=== PATIENT | female | born 1985 ===

== ENCOUNTER 2016-11-11 11:30 | Emergency (ER) | payer MEDICAID ==
[2016-11-11 11:33] VITALS: BMI 44.9
[2016-11-11 11:34] VITALS: O2SAT 99
--- NOTE | 2016-11-11 12:42 | ED PDOC ---
HPI: Psych/Substance Abuse Time Seen by Provider: 11/11/16 11:51 Chief Complaint (Nursing): Psychiatric Evaluation Chief Complaint (Provider): Crisis evaluation History Per: Patient History/Exam Limitations: no limitations Onset/Duration Of Symptoms: Days Additional Complaint(s): PT reports bilateral breast pain. Pt states it began today. Pt states she is concerned about breast cancer. Pt also states she has body pain all over. She did not take any medications for the pain. Mother states she is at baseline for her schizophrenia however she has been going outside alone the last few days. Pt is not taking any medications Past Medical History Reviewed: Historical Data, Nursing Documentation, Vital Signs Vital Signs: Last Vital Signs Temp 100.2 F H 11/11/16 11:33 Pulse 100 H 11/11/16 11:33 Resp 18 11/11/16 11:33 BP 137/90 11/11/16 11:33 Pulse Ox 99 11/11/16 11:33 - Medical History PMH: Schizophrenia - Surgical History Surgical History: No Surg Hx - Family History Family History: States: No Known Family Hx - Home Medications Home Medications: Ambulatory Orders Medication Instructions Recorded Acetaminophen [Tylenol Extra 1,000 mg PO Q6H PRN #20 tablet 11/11/16 Strength] - Allergies Allergies/Adverse Reactions: Allergies Allergy/AdvReac Type Severity Reaction Status Date / Time No Known Allergies Allergy Verified 11/11/16 11:53 Review of Systems ROS Statement: Except As Marked, All Systems Reviewed And Found Negative Genitourinary Female: Positive for: Other (Breast pain ) Physical Exam - Reviewed Nursing Documentation Reviewed: Yes Vital Signs Reviewed: Yes - Physical Exam Appears: Positive for: Well, Non-toxic, No Acute Distress Head Exam: Positive for: ATRAUMATIC, NORMAL INSPECTION, NORMOCEPHALIC Skin: Positive for: Normal Color, Warm, DRY Eye Exam: Positive for: Normal appearance ENT: Positive for: Normal ENT Inspection Neck: Positive for: Normal, Painless ROM Cardiovascular/Chest: Positive for: Regular Rate, Rhythm Respiratory: Positive for: CNT, Normal Breath Sounds Back: Positive for: Normal Inspection Extremity: Positive for: Normal ROM Neurologic/Psych: Positive for: Alert, Oriented - ECG O2 Sat by Pulse Oximetry: 99 Medical Decision Making Medical Decision Making: Temp 100.2 - Pt denies cough, abdominal pain, urinary symptoms. Disposition - Clinical Impression Clinical Impression: Viral illness - Patient ED Disposition Is Patient to be Admitted: No Counseled Patient/Family Regarding: Diagnosis, Need For Followup, Rx Given - Disposition Referrals: [facility] [Outside] Disposition: Routine/Home Disposition Time: 13:01 Condition: GOOD Prescriptions: Acetaminophen [Tylenol Extra Strength] 1,000 mg PO Q6H PRN #20 tablet PRN Reason: Pain or fever Instructions: Viral Syndrome (ED)
[2016-11-11 12:47] VITALS: BP 127/74; PULSE 94; RESP 22
[2016-11-11 13:04] VITALS: TEMP 98.2
== END 2016-11-11 14:49 | disposition home or self-care (01) ==
LOC: H.ER 11:30
DX: B34.9 Viral infection, unspecified (principal); F20.9 Schizophrenia, unspecified; N64.4 Mastodynia

== ENCOUNTER 2016-11-12 22:10 | Inpatient (IN) | payer MEDICAID ==
[2016-11-11 11:33] VITALS: BMI 44.9
[2016-11-12 22:17] VITALS: O2SAT 99
--- NOTE | 2016-11-12 22:28 | ED PDOC ---
Psych Transfer Clearance - Clearance Statement Clearance Statement: Reviewed vital signs, lab results and transfer papers. Patient clinically stable for psychiatric admission.
[2016-11-12] MEDS ORDERED: Alum-Mag Hydrox-Simethicone Susp (30 mL) PO PRN (22:50)
[2016-11-12] MEDS ORDERED: DiphenhydrAMINE 50 mg/ml Inj IM PRN (22:50)
[2016-11-12] MEDS ORDERED: Magnesium Hydroxide Susp 30 ml UD PO PRN (22:50)
--- NOTE | 2016-11-13 10:46 | CP.PCM.CON ---
History of Present Illness - History of Present Illness History of Present Illness: 11/13/16 06:45 Triglycerides 185 H Cholesterol 168 LDL Cholesterol Direct 111 HDL Cholesterol 36 Thyroxine (T4) 15.0 H TSH 3rd Generation 1.61 REASON FOR CONSULT: PER HOSPITAL PROTOCOL HPI: 40F no past medical history is currently admitted to psychiatry. Patient is currently unable to tell me why she was admitted to the hospital. Per report , patient had auditory hallucinations, however patient is unable to describe them. Otherwise no complaints. HD stable, NAD. ROS: per HPI, all other systems reviewed and negative PMSH: denies FH: DM SH: DENIES TOBACCO ETOH IVDU MEDS BELOW NKDA VITALS Temp Pulse Resp BP Pulse Ox 97.9 F 95 H 18 141/92 H 99 11/13/16 09:00 11/13/16 09:00 11/13/16 09:00 11/13/16 09:00 11/12/16 22:13 EXAM GENERAL APPEARANCE: Well developed, well nourished, alert and cooperative, and appears to be in no acute distress. HEAD: normocephalic. EYES: PERRL, EOMI. Fundi normal, vision is grossly intact. EARS: External auditory canals and tympanic membranes clear, hearing grossly intact. NOSE: No nasal discharge. THROAT: Oral cavity and pharynx normal. No inflammation, swelling, exudate, or lesions. CARDIAC: Normal S1 and S2. No S3, S4 or murmurs. Rhythm is regular. LUNGS: Clear to auscultation and percussion without rales, rhonchi, wheezing or diminished breath sounds. ABDOMEN: Positive bowel sounds. Soft, nondistended, nontender. No guarding or rebound. No masses. MUSKULOSKELETAL: Adequately aligned spine. ROM intact spine and extremities. No joint erythema or tenderness. BACK: Examination of the spine reveals normal gait and posture EXTREMITIES: No significant deformity or joint abnormality. No edema. Peripheral pulses intact. No varicosities. NEUROLOGICAL: CN II-XII intact. Strength and sensation symmetric and intact throughout. Reflexes 2+ throughout. SKIN: Skin normal color, texture and turgor with no lesions or eruptions. PSYCHIATRIC: The mental examination revealed the patient was oriented to person , place, and time. no lab results ASSESSMENT AND PLAN 40F no past medical history is currently admitted to psychiatry. Patient is currently unable to tell me why she was admitted to the hospital. Per report, patient had auditory hallucinations, however patient is unable to describe them. Otherwise no complaints. HD stable, NAD. Auditory Hallucinations management per psychiatry Past Patient History - Past Social History Smoking Status: Unknown If Ever Smoked - CARDIAC Hx Cardiac Disorders: No Hx Hypertension: No - PULMONARY Hx Tuberculosis: No - NEUROLOGICAL HX Cerebrovascular Accident: No Hx Seizures: No - HEMATOLOGICAL/ONCOLOGICAL Hx Cancer: No Hx Human Immunodeficiency Virus (HIV): No - GENITOURINARY/GYNECOLOGICAL Hx Sexually Transmitted Disorders: No - PSYCHIATRIC Hx Substance Use: No Meds Allergies/Adverse Reactions: Allergies Allergy/AdvReac Type Severity Reaction Status Date / Time No Known Allergies Allergy Verified 11/11/16 11:53 - Medications Medications: Current Medications Acetaminophen (Tylenol 325mg Tab) 650 mg PO Q4 PRN PRN Reason: Pain, moderate (4-7) Al Hydrox/Mg Hydrox/Simethicone (Maalox Plus 30 Ml) 30 ml PO Q4 PRN PRN Reason: Dyspepsia Diphenhydramine HCl (Benadryl) 50 mg IM Q6 PRN PRN Reason: Extrapyramidal S/S Unable PO Diphenhydramine HCl (Benadryl) 50 mg PO Q6 PRN PRN Reason: Extrapyramidal Symptoms Last Admin: 11/12/16 23:11 Dose: 50 mg Haloperidol (Haldol) 5 mg PO Q4 PRN PRN Reason: Agitation Last Admin: 11/12/16 23:11 Dose: 5 mg Haloperidol Lactate (Haldol) 5 mg IM Q4 PRN PRN Reason: Agitation, Unable to Take PO Lorazepam (Ativan) 2 mg IM Q4 PRN PRN Reason: Anxiety/Agitation,Unable PO Magnesium Hydroxide (Milk Of Magnesia) 30 ml PO HS PRN PRN Reason: Constipation Results - Vital Signs Recent Vital Signs: Last Vital Signs Temp 97.9 F 11/13/16 09:00 Pulse 95 H 11/13/16 09:00 Resp 18 11/13/16 09:00 BP 141/92 H 11/13/16 09:00 Pulse Ox 99 11/12/16 22:13 - Labs Labs: Laboratory Results - last 24 hr 11/13/16 06:45 Triglycerides 185 H Cholesterol 168 LDL Cholesterol Direct 111 HDL Cholesterol 36 Thyroxine (T4) 15.0 H TSH 3rd Generation 1.61
--- NOTE | 2016-11-13 12:44 | PCM.PSYCH ---
Initial Psychiatric Evaluation - Initial Psychiatric Evaluation Type of Admission: Voluntary Legal Status: Capacity Chief Complaint (in patient's own words): i wasn't feeling well Patient's Reaction to Hospitalization: ambivalent History of Present Illness and Precipitating Events: pt is 31 year old living with parents and her 11 yo daughter per her report. tranferred from [facility] er where she was brought by her family. she has a history of schizophrenia and has been hospitalized in the past. she apparently was taking medications and per chart, pt's father stated that dr. vo stopped the medications because the pt was stable. pt was brought to the ER because she was psychotic- dishevelled, not caring for adls, paranoid, talking to self, religiously preoccupied and per chart was spreading her own feces on the [place]. pt is currently pacing the halls and talking to herself and talking other clients on the unit about bizarre anabaptism delusions. pt is asking to be allowed to see her mother. attempted to discuss starting medications to treat her psychotic symptoms, but pt states "they are all poison! " and states she is will not take them. Current Medications: Active Medications Generic Name Dose Route Start Last Admin Trade Name Freq PRN Reason Stop Dose Admin Acetaminophen 650 mg 11/12/16 22:50 Tylenol 325mg Tab PO Q4 PRN Pain, moderate (4-7) Al Hydrox/Mg Hydrox/Simethicone 30 ml 11/12/16 22:50 Maalox Plus 30 Ml PO Q4 PRN Dyspepsia Diphenhydramine HCl 50 mg 11/12/16 22:50 Benadryl IM Q6 PRN Extrapyramidal S/S Unable PO Diphenhydramine HCl 50 mg 11/12/16 22:50 11/12/16 23:11 Benadryl PO 50 mg Q6 PRN Administration Extrapyramidal Symptoms Haloperidol 5 mg 11/12/16 22:50 11/12/16 23:11 Haldol PO 5 mg Q4 PRN Administration Agitation Haloperidol Lactate 5 mg 11/12/16 22:50 Haldol IM Q4 PRN Agitation, Unable to Take PO Lorazepam 2 mg 11/12/16 22:50 Ativan IM Q4 PRN Anxiety/Agitation,Unable PO Magnesium Hydroxide 30 ml 11/12/16 22:50 Milk Of Magnesia PO HS PRN Constipation Past Psychiatric History - Past Psychiatric History Previous Treatment History: Inpatient Prior Professional Help: states she saw dr. vo (states he has a "devils tail ") At [facility]: [facility]- per pt and staff. cannot locate records History of Abuse: unknown History of ETOH/Drug Use: states she used to smoke cigarettes. denies using illicit substances History of Family Illness: unknown Pertinent Medical Hx (Current Medical&Sleep Prob, Allergies): Allergies Allergy/AdvReac Type Severity Reaction Status Date / Time No Known Allergies Allergy Verified 11/11/16 11:53 Acetaminophen [Tylenol Extra Strength] 1,000 mg PO Q6H PRN #20 tablet 11/11/16 Review of Systems - Psychiatric Psychiatric: As Per HPI, Confusion Mental Status Examination - Personal Presentation Personal Presentation: Looks stated age, Obese Additional comments: unkempt - Affect Affect: Blunted - Motor Activity Motor Activity: Calm Additional comments: but is restless, pacing - Reliability in Providing Information Reliability in Providing Information: Good - Speech Speech: Disorganized - Mood Mood: Depressed, Anxious - Formal Thought Process Formal Thought Process: Hallucinations, Delusions, Paranoia, Loosening of associations - Hallucinations/Delusions Delusions: Other (anabaptism preoccupations) - Obsessions/Compulsions Obsessions: No Compulsions: No - Cognitive Functions Orientation: Person, Place, Situation, Time Sensorium: Alert Attention/Concentration: Easily distracted Abstract Thinking: [place] Estimate of Intelligence: Average Judgement: Intact, as evidence by: Insight regarding need for hospitalization Memory: Recent intact, as evidence by: Ability to recall events of the day, Remote intact, as evidenced by: Abilit to recall sig. life events - Risk Risk: Self-mutilation, Diminished functioning - Strength & Assets Inventory Strength & Assets Inventory: Family support DSM 5 DX - DSM 5 DSM 5 Diagnosis: schizophrenia, paranoid - Recommended/Plan of Treatment Treatment Recommendations and Plan of Treatment: admit to [facility] for safety and observation gather collateral information provide supportive therapy adjust medications- attempting to get pt's previous medications to restart. will use prn haldol/ativan for now. at this time pt is refusing to consider taking psychiatric medications disposition planing hospitalist consult Projected ELOS: 5-7 days Prognosis: fair - Smoking Cessation Smoking Cessation Initiated: No Reason for not providing: does not smoke
--- NOTE | 2016-11-14 15:28 | PCM.PYCHPN ---
Psychiatric Progress Note - Psychiatric Progress Note Patient seen today, length of contact: in treatment team Patient Chief Complaint: i took those diet pills and that was like poison Problems Identified/Issues Discussed: pt disorganized, pacing halls and muttering to self. she does admit to feeling depressed and having delusional thoughts and that she was doing better on medications. she cannot recall the names of her medications. she is now allowing team to start abilify to target her mood/psychotic symptoms. Medication Change: No Medical Record Reviewed: Yes Mental Status Examination - Cognitive Function Orientation: Person, Place, Situation, Time Memory: Intact Attention: Poor Concentration: Poor Association: Loose Fund of Knowledge: WNL Decription of patient's judgement and insights: improving - Mood Mood: Depressed, Anxious - Affect Affect: Blunted - Speech Speech: Pressured - Formal Thought Process Formal Thought Process: Hallucinations, Delusions, Paranoia, Loosening of associations - Suicidal Ideation Suicidal Ideation: No - Homicidal Ideation Homicidal Ideation: No Goal/Treatment Plan - Goal/Treatment Plan Need for Continued Stay: Remain at risks for inpatient hospitalization, Severe functional impairment Progress Toward Problem(s) and Goals/Treatment Plan: schizoaffectivec disorder needs further treatment and stabilization will start abilfy to target psychosis awaiting pharmacy contact info to help guide treatment hospitalist following disposition planing Estimated Date of D/C: 11/19/16
--- NOTE | 2016-11-15 10:16 | PCM.PYCHPN ---
Psychiatric Progress Note - Psychiatric Progress Note Patient seen today, length of contact: discussed with team Patient Chief Complaint: i need to sleep Problems Identified/Issues Discussed: pt starting at floor, pacing the halls at times. is attending groups but sits to self and is responding to inernal stimuli. she agrees to an increase in her abilify and to trazodone for sleep. Medication Change: No Medical Record Reviewed: Yes Mental Status Examination - Cognitive Function Orientation: Person, Place, Situation, Time Memory: Intact Attention: Poor Concentration: Poor Association: Loose Fund of Knowledge: WNL Decription of patient's judgement and insights: improving - Mood Mood: Depressed, Anxious - Affect Affect: Blunted - Speech Speech: Soft - Formal Thought Process Formal Thought Process: Hallucinations, Delusions, Paranoia, Loosening of associations Psychotic Thoughts and Behaviors: pt talking to self, poor adls, delusional thoughts - Suicidal Ideation Suicidal Ideation: No - Homicidal Ideation Homicidal Ideation: No Goal/Treatment Plan - Goal/Treatment Plan Need for Continued Stay: Remain at risks for inpatient hospitalization, Severe functional impairment Progress Toward Problem(s) and Goals/Treatment Plan: schizoaffectivec disorder needs further treatment and stabilization will increase abilfy to target psychosis trazodone hs for sleep family unware of pt's previous meds hospitalist following disposition planing Estimated Date of D/C: 11/19/16
--- NOTE | 2016-11-16 12:42 | PCM.PYCHPN ---
Psychiatric Progress Note - Psychiatric Progress Note Patient seen today, length of contact: discussed with team Patient Chief Complaint: i want to go home now Problems Identified/Issues Discussed: pt remains internally preoccupied. continues to pace. she is disruptive in groups. she is taking to self, unkempt and appears uninterested in ADLs. she demands to leave and signs a 48 hour notice. pt then asked for her things and tries to pack, despite being informed that she would be screened for involuntary hospitalization. her thoughts are disorganized. she remains with bizarre delusions and some advent preoccupation. Medication Change: Yes (increase abilify) Medical Record Reviewed: Yes Mental Status Examination - Cognitive Function Orientation: Person, Place, Situation, Time Memory: Intact Attention: Poor Concentration: Poor Association: Loose Fund of Knowledge: WNL Decription of patient's judgement and insights: improving - Mood Mood: Depressed, Anxious - Affect Affect: Blunted - Speech Speech: Soft - Formal Thought Process Formal Thought Process: Hallucinations, Delusions, Paranoia, Loosening of associations Psychotic Thoughts and Behaviors: pt talking to self, poor adls, delusional thoughts. - Suicidal Ideation Suicidal Ideation: No - Homicidal Ideation Homicidal Ideation: No Goal/Treatment Plan - Goal/Treatment Plan Need for Continued Stay: Remain at risks for inpatient hospitalization, Severe functional impairment Progress Toward Problem(s) and Goals/Treatment Plan: schizoaffectivec disorder needs further treatment and stabilization will increase abilfy to 15mg to target psychosis continue trazodone hs for sleep will screen for involuntary hospitalization as pt is grossly distrubed by her psychotic thoughts and a risk to self hospitalist following disposition planing Estimated Date of D/C: 11/19/16
--- NOTE | 2016-11-17 08:44 | PCM.PYCHPN ---
Psychiatric Progress Note - Psychiatric Progress Note Patient seen today, length of contact: discussed with team Patient Chief Complaint: pt is still internally preoccupied and stil hallucinating and saying that she still feels that someone is pinching her DSM 5 Symptoms Update: s chizoaffective disorder Medication Change: Yes (increase abilify) Medical Record Reviewed: Yes Mental Status Examination - Cognitive Function Orientation: Person, Place, Situation, Time Memory: Intact Attention: Poor Concentration: Poor Association: Loose Fund of Knowledge: WNL - Mood Mood: Depressed, Anxious - Affect Affect: Blunted - Speech Speech: Soft - Formal Thought Process Formal Thought Process: Hallucinations, Delusions, Paranoia, Loosening of associations - Suicidal Ideation Suicidal Ideation: No - Homicidal Ideation Homicidal Ideation: No Goal/Treatment Plan - Goal/Treatment Plan Need for Continued Stay: Remain at risks for inpatient hospitalization, Severe functional impairment Progress Toward Problem(s) and Goals/Treatment Plan: will increase abilify to 20 mg daily and stabilize the pt and engage pt in therapy Estimated Date of D/C: 11/19/16
--- NOTE | 2016-11-18 15:35 | PCM.PYCHPN ---
Psychiatric Progress Note - Psychiatric Progress Note Patient seen today, length of contact: discussed with team Patient Chief Complaint: pt is still internally preoccupied and stil hallucinating and saying that she still feels that someone is pinching her Problems Identified/Issues Discussed: admitted for disorganized thinking and psychotic agitation Medication Change: Yes (increase abilify) Medical Record Reviewed: Yes Mental Status Examination - Cognitive Function Orientation: Person, Place, Situation, Time Memory: Intact Attention: Poor Concentration: Poor Association: Loose Fund of Knowledge: WNL - Mood Mood: Depressed, Anxious - Affect Affect: Blunted - Speech Speech: Soft - Formal Thought Process Formal Thought Process: Hallucinations, Delusions, Paranoia, Loosening of associations - Suicidal Ideation Suicidal Ideation: No - Homicidal Ideation Homicidal Ideation: No Goal/Treatment Plan - Goal/Treatment Plan Need for Continued Stay: Remain at risks for inpatient hospitalization, Severe functional impairment Progress Toward Problem(s) and Goals/Treatment Plan: will increase abilify to 20 mg daily and stabilize the pt and engage pt in therapy Estimated Date of D/C: 11/19/16
--- NOTE | 2016-11-19 13:42 | PCM.PYCHPN ---
Psychiatric Progress Note - Psychiatric Progress Note Patient seen today, length of contact: discussed with team Patient Chief Complaint: i know i need to stay Problems Identified/Issues Discussed: pt still internally preoccupied. now is taking medications. retracted 48 hour notice. states medicine is helping, but she is still hearing voices. states she feels tired, but does not want timing of medicine changed. Medication Change: No ( ) Medical Record Reviewed: Yes Mental Status Examination - Cognitive Function Orientation: Person, Place, Situation, Time Memory: Intact Attention: Poor Concentration: Poor Association: Loose Fund of Knowledge: WNL Decription of patient's judgement and insights: improving - Mood Mood: Depressed, Anxious - Affect Affect: Blunted - Speech Speech: Soft - Formal Thought Process Formal Thought Process: Hallucinations, Paranoia, Loosening of associations - Suicidal Ideation Suicidal Ideation: No - Homicidal Ideation Homicidal Ideation: No Goal/Treatment Plan - Goal/Treatment Plan Need for Continued Stay: Remain at risks for inpatient hospitalization, Severe functional impairment Progress Toward Problem(s) and Goals/Treatment Plan: schizoaffectivec disorder needs further treatment and stabilization will continue abilfy 20mg continue trazodone hs for sleep hospitalist following disposition planing Estimated Date of D/C: 11/19/16
--- NOTE | 2016-11-20 13:55 | PCM.PYCHPN ---
Psychiatric Progress Note - Psychiatric Progress Note Patient seen today, length of contact: discussed with team Patient Chief Complaint: i am not sleeping well Problems Identified/Issues Discussed: pt remains internally preoccupied. c/o voices at night. she is paranoid. she is less anxious and no longer pacing on the unit. she is in the milieu and interacting with her peers. Medical Problems: obesity Medication Change: No ( ) Medical Record Reviewed: Yes Mental Status Examination - Cognitive Function Orientation: Person, Place, Situation, Time Memory: Intact Attention: Poor Concentration: Poor Association: Loose Fund of Knowledge: WNL Decription of patient's judgement and insights: improving - Mood Mood: Depressed, Anxious - Affect Affect: Blunted - Speech Speech: Soft - Formal Thought Process Formal Thought Process: Hallucinations, Paranoia, Loosening of associations Psychotic Thoughts and Behaviors: c/o ah and is internally preoccupied - Suicidal Ideation Suicidal Ideation: No - Homicidal Ideation Homicidal Ideation: No Goal/Treatment Plan - Goal/Treatment Plan Need for Continued Stay: Remain at risks for inpatient hospitalization, Severe functional impairment Progress Toward Problem(s) and Goals/Treatment Plan: schizoaffectivec disorder needs further treatment and stabilization will continue abilfy 20mg increase trazodone to 100mg hs for sleep hospitalist following disposition planing Estimated Date of D/C: 11/27/16
--- NOTE | 2016-11-21 14:16 | PCM.PYCHPN ---
Psychiatric Progress Note - Psychiatric Progress Note Patient seen today, length of contact: in treatment team Patient Chief Complaint: i feel much better Problems Identified/Issues Discussed: pt participating in groups. she is reporting she is no longer hearing voices. she is denying medication side effects. she states she still feels tearful but feels better after she cries. Medical Problems: obesity Medication Change: No ( ) Medical Record Reviewed: Yes Mental Status Examination - Cognitive Function Orientation: Person, Place, Situation, Time Memory: Intact Attention: Poor Concentration: Poor Association: Loose Fund of Knowledge: WNL Decription of patient's judgement and insights: improving - Mood Mood: Depressed, Anxious - Affect Affect: Blunted - Speech Speech: Soft - Formal Thought Process Formal Thought Process: Other (internally preoccupied) Psychotic Thoughts and Behaviors: no c/o ah - Suicidal Ideation Suicidal Ideation: No - Homicidal Ideation Homicidal Ideation: No Goal/Treatment Plan - Goal/Treatment Plan Need for Continued Stay: Remain at risks for inpatient hospitalization, Severe functional impairment Progress Toward Problem(s) and Goals/Treatment Plan: schizoaffectivec disorder needs further treatment and stabilization will continue abilfy 20mg continue trazodone 100mg hs for sleep hospitalist following disposition planing Estimated Date of D/C: 11/27/16
--- NOTE | 2016-11-22 10:56 | PCM.PYCHPN ---
Psychiatric Progress Note - Psychiatric Progress Note Patient seen today, length of contact: discussed with team Patient Chief Complaint: i want to go home soon Problems Identified/Issues Discussed: pt attending groups. she is more social with her peers. she denies any auditory hallucinations and continues to state she will get the maintaina injection. she has a brighter affect today with more spontaneous and organized speech. Medical Problems: obesity Medication Change: No ( ) Medical Record Reviewed: Yes Mental Status Examination - Cognitive Function Orientation: Person, Place, Situation, Time Memory: Intact Attention: WNL Concentration: WNL Association: WN Fund of Knowledge: [facility] Decription of patient's judgement and insights: fair - Mood Mood: Anxious - Affect Affect: Constricted (reactive smile) - Speech Speech: Soft - Formal Thought Process Formal Thought Process: Other (less internally preoccupied) Psychotic Thoughts and Behaviors: no c/o ah - Suicidal Ideation Suicidal Ideation: No - Homicidal Ideation Homicidal Ideation: No Goal/Treatment Plan - Goal/Treatment Plan Need for Continued Stay: Remain at risks for inpatient hospitalization, Severe functional impairment Progress Toward Problem(s) and Goals/Treatment Plan: schizoaffectivec disorder needs further treatment and stabilization will continue abilfy 20mg- will attempt to give maintaina 400mg tomorrow/sat and observe prior to discharge continue trazodone 100mg hs for sleep hospitalist following disposition planing Estimated Date of D/C: 11/27/16
--- NOTE | 2016-11-23 11:55 | PCM.PYCHPN ---
Psychiatric Progress Note - Psychiatric Progress Note Patient seen today, length of contact: discussed with team Patient Chief Complaint: i am okay Problems Identified/Issues Discussed: pt attending groups. socializing. seems a bit more withdrawn today. she denies any a/v hallucinations. fair sleep. Medical Problems: obesity Medication Change: Yes (attempt to give abilify maintaina today) Medical Record Reviewed: Yes Mental Status Examination - Cognitive Function Orientation: Person, Place, Situation, Time Memory: Intact Attention: WNL Concentration: WNL Association: WNL Fund of Knowledge: [facility] Decription of patient's judgement and insights: fair - Mood Mood: Anxious - Affect Affect: Constricted (reactive smile) - Speech Speech: Soft - Formal Thought Process Formal Thought Process: Other (less internally preoccupied) Psychotic Thoughts and Behaviors: no c/o ah - Suicidal Ideation Suicidal Ideation: No - Homicidal Ideation Homicidal Ideation: No Goal/Treatment Plan - Goal/Treatment Plan Need for Continued Stay: Remain at risks for inpatient hospitalization, Severe functional impairment Progress Toward Problem(s) and Goals/Treatment Plan: schizoaffectivec disorder needs further treatment and stabilization will continue abilfy 20mg- will attempt to give maintaina 400mg today/sat and observe prior to discharge continue trazodone 100mg hs for sleep hospitalist following disposition planing Estimated Date of D/C: 11/27/16
--- NOTE | 2016-11-24 10:35 | PCM.PYCHPN ---
Psychiatric Progress Note - Psychiatric Progress Note Patient seen today, length of contact: Patient evaluated, case discussed with team, chart reviewed Patient Chief Complaint: "I didn't sleep well last night." Problems Identified/Issues Discussed: Patient reports poor sleep last night. She was soft spoken with constricted affect. Non-linear at times during the conversation. She expressed paranoia that people on the unit may be trying to harm her, but she wasn't certain who. Denied AH/VH/SI/HI. Medication Change: No Medical Record Reviewed: Yes Mental Status Examination - Cognitive Function Orientation: Person, Place, Situation, Time Memory: Intact Attention: WNL Concentration: WNL Association: WNL Fund of Knowledge: WNL - Mood Mood: Anxious - Affect Affect: Constricted (reactive smile) - Speech Speech: Soft - Formal Thought Process Formal Thought Process: Paranoia, Other (less internally preoccupied) Psychotic Thoughts and Behaviors: +Paranoia - Suicidal Ideation Suicidal Ideation: No - Homicidal Ideation Homicidal Ideation: No Goal/Treatment Plan - Goal/Treatment Plan Need for Continued Stay: Remain at risks for inpatient hospitalization, Severe functional impairment Progress Toward Problem(s) and Goals/Treatment Plan: Schizoaffective Disorder; needs further treatment and stabilization -Continue current medications -Medicine consult appreciated -Individual and group therapy Estimated Date of D/C: 11/27/16
--- NOTE | 2016-11-25 13:18 | PCM.PYCHPN ---
Psychiatric Progress Note - Psychiatric Progress Note Patient seen today, length of contact: Patient evaluated, case discussed with team, chart reviewed Patient Chief Complaint: "I'm afraid" Problems Identified/Issues Discussed: Patient reports that she is very anxious and afraid that someone bad will happen to her, due to her paranoid ideations. Patient agreeable to taking PRN ativan. She reports that she feels depressed and she was tearful on interview. Denied AH/VH/SI/HI. Medication Change: No Medical Record Reviewed: Yes Mental Status Examination - Cognitive Function Orientation: Person, Place, Situation, Time Memory: Intact Attention: WNL Concentration: WNL Association: [facility] Fund of Knowledge: [facility] Decription of patient's judgement and insights: Poor I/J - Mood Mood: Anxious - Affect Affect: Constricted (reactive smile) - Speech Speech: Soft - Formal Thought Process Formal Thought Process: Paranoia Psychotic Thoughts and Behaviors: +Paranoia - Suicidal Ideation Suicidal Ideation: No - Homicidal Ideation Homicidal Ideation: No Goal/Treatment Plan - Goal/Treatment Plan Need for Continued Stay: Remain at risks for inpatient hospitalization, Severe functional impairment Progress Toward Problem(s) and Goals/Treatment Plan: Schizoaffective Disorder; needs further treatment and stabilization -Continue current medications -Medicine consult appreciated -Individual and group therapy Estimated Date of D/C: 11/27/16
[2016-11-26] MEDS ORDERED: Multiple Vitamins Oral Solution PO SCH (09:00)
--- NOTE | 2016-11-26 10:01 | PCM.PYCHDC ---
Mental Status Examination - Mental Status Examination Orientation: Person, Place, Situation, Time Memory: Intact Mood: Anxious (regarding discharge) Affect: Blunted Speech: Appropriate Attention: WNL Concentration: WNL Association: WNL Fund of Knowledge: WNL Formal Thought Process: Loosening of associations Description of patient's judgement and insight: fair Psychotic Thoughts and Behaviors: no c/o ah Suicidal Ideation: No Current Homicidal Ideation?: No Plan: pt denies any suicidal or homicidal thoughts Discharge Summary - Discharge Note Reason for Hospitalization: pt was not taking medications, was decompensated and psychotic Psychiatric History (includes Medical, Family, Personal Hx): history of schizoaffective disorder Consultations:: List each consultation separately and include: 1. Reason for request. 2. Findings. 3. Follow-up Consultations: seen by hospitalist Summary of Hospital Course include:: 1. Description of specific treatment plan utilized for patients during their course of treatmen. 2. Summarize the time- course for resolution of acute symptoms and/or regressed behaviors. 3. Describe issues identified and worked on during hospitalization. 4. Describe medication utilized. 5. Describe medical problems identified and treated. 6. Reassessment of suicide risk Summary of Hospital Course: pt is 31 year old living with parents and her 11 yo daughter per her report. tranferred from [facility] er where she was brought by her family. she has a history of schizophrenia and has been hospitalized in the past. she apparently was taking medications and per chart, pt's father stated that dr. vo stopped the medications because the pt was stable. pt was brought to the ER because she was psychotic- dishevelled, not caring for adls, paranoid, talking to self, religiously preoccupied and per chart was spreading her own feces on the [place]. pt is currently pacing the halls and talking to herself and talking other clients on the unit about bizarre confucianist delusions. pt is asking to be allowed to see her mother. attempted to discuss starting medications to treat her psychotic symptoms, but pt states "they are all poison! " and states she is will not take them. hospital course admitted to [facility] and oriented to the unit. pt placed on routine safety protocols. pt started on abilify which she agreed to take. her psychotic symptoms improved and she was agreeable to take the abilify maintaina injection , however her insurance had and we were unable to obtain it to give the first dose here. the patient was able to agree to follow up with her intake appointment on the day after discharge. she was denying any suicidal or homicidal thoughts at the time of discharge. - Final Diagnosis (DSM 5) Condition upon Discharge: FAIR DSM 5: schizophrenia, paranoid type Disposition: HOME/ ROUTINE Follow-up Treatment Plan: take medications as prescribed do not use alcohol, tobacco or other illicit substances call 911 if any suicidal or homicidal thoughts follow up with aftercare as directed can start abilify maintaina 400mg q month as an outpt. Prescriptions/Medication Reconciliation: Aripiprazole [Abilify] 20 mg PO DAILY #15 tablet traZODone [Desyrel] 100 mg PO HS #30 tab - Smoking Cessation Smoking Cessation Medication prescribed: No - Antipsychotic Medications Pt discharged on 2 or more routine antipsychotic medications: No
[2016-11-26 16:27] VITALS: BP 139/90; PULSE 97; RESP 20; TEMP 97.7
== END 2016-11-26 18:51 | disposition home or self-care (01) | DRG 430 ==
LOC: H.ER 22:10 → H.PSYCH 22:27
PROVIDERS: ADMIT Psychiatry & Neurology Psychiatry; ATTEND Psychiatry & Neurology Psychiatry
PROC: GZ51ZZZ Individual Psychotherapy, Behavioral (ICD-10-PCS; 2016-11-12)
PROC: GZHZZZZ Group Psychotherapy (ICD-10-PCS; principal; 2016-11-14)
DX: F20.0 Paranoid schizophrenia (principal); Z68.41 Body mass index [BMI] 40.0-44.9, adult; F25.9 Schizoaffective disorder, unspecified; E66.9 Obesity, unspecified; Z87.891 Personal history of nicotine dependence

== ENCOUNTER 2016-11-28 10:36 | Emergency (ER) | payer MEDICAID ==
[2016-11-28 10:50] VITALS: BMI 43.7
--- NOTE | 2016-11-28 12:05 | ED PDOC ---
HPI: General Adult Time Seen by Provider: 11/28/16 10:56 Chief Complaint (Nursing): Med Refill Chief Complaint (Provider): Needs psychiatric medications History Per: Patient, Family Have you had recent travel within the past 21 days to any of the following countries: [place], [place], [place] or [place]?: No Additional Complaint(s): Pt was discharged 2 days ago from [facility] and given Rx for abilify and trazadone. Pt states she is feeling okay but was unable to fill the prescriptions because they are too expensive without insurance. Pt applied to insurance renewal today. Father state she has been acting abnormal again. PT states she feels okay. Past Medical History Reviewed: Historical Data, Nursing Documentation, Vital Signs Vital Signs: Last Vital Signs Temp 98 F 11/28/16 10:57 Pulse 101 H 11/28/16 10:57 Resp 18 11/28/16 10:57 BP 113/57 L 11/28/16 10:57 Pulse Ox 99 11/28/16 12:15 - Medical History PMH: Schizophrenia Denies: Diabetes, Hepatitis, HIV, HTN, Seizures, Sexually Transmitted Disease - Surgical History Surgical History: No Surg Hx - Family History Family History: States: No Known Family Hx - Living Arrangements Living Arrangements: With Family - Social History Current smoker - smoking cessation education provided: No Alcohol: None Drugs: Denies - Home Medications Home Medications: Ambulatory Orders Medication Instructions Recorded ARIPiprazole [Abilify] 20 mg PO DAILY #0 tab 11/26/16 Aripiprazole [Abilify] 20 mg PO DAILY #15 tablet 11/26/16 traZODone [Desyrel] 100 mg PO HS #30 tab 11/26/16 Aripiprazole [Abilify] 20 mg PO DAILY #15 tablet 11/28/16 traZODone [Desyrel] 100 mg PO HS #30 tab 11/28/16 - Allergies Allergies/Adverse Reactions: Allergies Allergy/AdvReac Type Severity Reaction Status Date / Time No Known Allergies Allergy Verified 11/28/16 10:55 Review of Systems ROS Statement: Except As Marked, All Systems Reviewed And Found Negative Constitutional: Negative for: Fever, Chills Psych: Negative for: Psychosis, Suicidal ideation, Withdrawal Physical Exam - Reviewed Nursing Documentation Reviewed: Yes Vital Signs Reviewed: Yes - Physical Exam Appears: Positive for: Well, Non-toxic, No Acute Distress Head Exam: Positive for: ATRAUMATIC, NORMAL INSPECTION, NORMOCEPHALIC Skin: Positive for: Normal Color, Warm, DRY Eye Exam: Positive for: Normal appearance ENT: Positive for: Normal ENT Inspection Neck: Positive for: Normal, Painless ROM Cardiovascular/Chest: Positive for: Regular Rate, Rhythm Respiratory: Positive for: CNT, Normal Breath Sounds Gastrointestinal/Abdominal: Positive for: Normal Exam, Bowel Sounds, Soft Back: Positive for: Normal Inspection Extremity: Positive for: Normal ROM Neurologic/Psych: Positive for: Alert, Oriented - ECG O2 Sat by Pulse Oximetry: 99 Medical Decision Making Medical Decision Making: Crisis evaluation completed. Abilify given in ER. Disposition - Clinical Impression Clinical Impression: Schizophrenia - Patient ED Disposition Is Patient to be Admitted: No Counseled Patient/Family Regarding: Diagnosis, Need For Followup, Rx Given - Disposition Disposition: Routine/Home Disposition Time: 12:56 Condition: GOOD Prescriptions: Aripiprazole [Abilify] 20 mg PO DAILY #15 tablet traZODone [Desyrel] 100 mg PO HS #30 tab Instructions: Schizophrenia (ED)
[2016-11-28 13:36] VITALS: BP 120/78; PULSE 78; RESP 19; TEMP 97.7; O2SAT 98
== END 2016-11-28 13:36 | disposition home or self-care (01) ==
LOC: H.ER 10:36
DX: F20.9 Schizophrenia, unspecified (principal)